=== PATIENT | male | born 1945 | race Caucasian/White ===

== ENCOUNTER 2018-05-25 05:42 | Day surgery (SDC) | payer OTHER ==
[~2018-05-25] VITALS: Ht 180.3 cm; Wt 135.2 kg
--- NOTE | ~2018-05-25 | O ---
[facility] [place] [address] OPERATIVE REPORT Name: MAX PRIEST Room #: 150-6 [facility]..#: [id number] Admission: 05/25/18 Attend Phys: Soren Chin MD Discharge: Date of : 49 Report #: [id number] THIS REPORT FOR: //name// CC: [facility] Physician staff DAVID Chin DATE OF SERVICE: 05/25/2018 PREOPERATIVE DIAGNOSIS: Tumor of left lower lid and cheek. POSTOPERATIVE DIAGNOSIS: Tumor of left lower lid and cheek, basal cell carcinoma. PROCEDURE: Excision of lesion of left lower lid and cheek with frozen section, control of margins and myocutaneous flap repair of defect. SURGEON: Soren Chin MD TELEPHONY ENGINEER: None. ANESTHESIA: MAC. COMPLICATIONS: None. INDICATIONS FOR SURGERY: This pleasant 73-year-old gentleman presents with a nodular ulcerative lesion in his central left lower lid that extends down onto his cheek. Today's plan is to remove that lesion with frozen section, control of tumor extirpation, subsequently reconstruct that defect once margins are clear. Informed consent was obtained to include but not limited to potential risk for loss of vision, bleeding, infection, failure to improve the problem, the potential need for further surgery or treatment. DESCRIPTION OF PROCEDURE: The patient was taken to the operating room where 2% Xylocaine with epinephrine mixed with equal parts 0.75% Marcaine with Wydase was administered transcutaneously to the left lower lid and cheek. The patient was subsequently prepped and draped in the usual sterile fashion. A fine tip skin marking pen was utilized to outline the lesion including 1-2 mm of normal appearing tissue around its entire margin. The incisions were then made with a Blanca scissor and the deeper dissection accomplished through the orbicularis muscle all the way down to the orbital septum. The lesion was then oriented on a drawing for the waiting pathologist as hemostasis was achieved in the field. The pathologist snap froze that specimen and found that the margins were clear [address] [address] OPERATIVE REPORT Name: MAX PRIEST Jovany Room #: 150-6 [facility]..#: [id number] Admission: 05/25/18 Attend Phys: Soren Chin MD Discharge: Date of : 49 Report #: [id number] and the lesion was indeed a basal cell carcinoma. The area was reinspected and a myocutaneous flap outlined laterally. Dissection was accomplished, relaxing incision made and the flap advanced in such a manner to leave an incision closed parallel to the nasojugal fold. That closure was accomplished with interrupted deep Vicryl sutures, followed by a final closure of 6-0 plain gut sutures in the skin. The wounds were then cleaned and dressed with erythromycin ophthalmic ointment. The patient subsequently transported to the recovery area, having tolerated the procedures well with no anesthetic or operative complications being noted. By: [id number] MD jesus manuel Aguilar
[~2018-05-25 05:42] MED LIST: ACCUPRIL10 MG PO; ALDACTONE50 MG PO; ASPIR 8181 MG PO; COREG25 M1 PO; DEMADEX20 MG PO; GLUCOPHAGE1000 MG PO; LIPITOR80 MG PO; NOVOLIN N100 UNIT/1 SUBQ; NOVOLIN R100 UNIT/1 SUBQ; UNICOMPLEX M TA1 TA1 PO; VITAMIN D5000 UNIT PO
[2018-05-25 15:02] VITALS: BP 180/93
--- NOTE | 2018-05-29 13:07 | PATH ---
[facility] [address] [place] [address] PATHOLOGY RPT PROCEDURE Name: MAX PRIEST Jovany Room #: DEP [facility]..#: [id number] Admission: 05/25/18 Date of : 49 Discharge: 05/25/18 Report #: [id number] Path Case #: [id number] [facility] Accession Number: [id number] . 01 Material submitted: . LEFT LOWER LID LESION - FS . 01 Clinical history: . None provided . 02 Diagnosis: Skin, left lower lid lesion, excision: - BASAL CELL CARCINOMA. - Margins of resection free of malignancy. (IUV:pit 05/26/2018) QTP/05/26/2018 . 02 Electronically signed: . Anaya Jefferson MD, Pathologist NPI- [id number] . 01 Gross description: . Specimen is received fresh from the OR labeled with the patient's name, and "left lower leg lesion" consists of an ellipse of skin measuring 1.7 x 1.5 x 0.5 cm. The specimen is oriented as superior, lateral,inferior, and medial by Dr. Chin. These are assigned 12:00, 3:00, 6:00 and 9:00 respectively. The 12:00, 3:00 to 6:00 is inked black, the 6:00 to 9:00 is inked blue and 9:00 to 12:00 is inked green. This specimen is serially sectioned and entirely submitted with frozen section as FSA1, subsequently submitted for permanent sections as A1. . FROZEN SECTION DIAGNOSIS: By Dr. Anaya Jefferson . FSA1. Skin, left lower leg lesion, excision: - BASAL CELL CARCINOMA. - Margins free of invasive carcinoma. . (IUV:at;05/25/2018) . These findings are discussed with Dr. Soren Chin in OR-6 at [facility] and a written report is placed in the patient's chart. . Frozen section performed at [facility], [address] [place] [address] , [place] [address]. [facility] . [address] [address] PATHOLOGY RPT PROCEDURE Name: MAX PRIEST Jovany Room #: DEP [facility] Kalen#: [id number] Admission: 05/25/18 Date of : 49 Discharge: 05/25/18 Report #: [id number] Path Case #: [id number] Pathologist provided ICD-10: C44.1192 . 02 CPT . 882008, [id number] Specimen Comment: A courtesy copy of this report has been sent to Specimen Comment: [phone], . Specimen Comment: Report sent to / DR BELL Specimen Comment: A duplicate report has been generated due to demographic updates. Performed at: [address], [place], [place] [id number] MD Bill Whitley MD Phone: [phone] Performed at: [address] [facility] [id number] MD Anyaa Jefferson MD Phone: [phone]
== END 2018-05-25 12:45 | disposition home or self-care (01) ==
LOC: OR 05:42 → TBA 05:43 → OR 12:45
DX: C44.1192 Basal cell carcinoma of skin of left lower eyelid, including canthus (principal); C44.319 Basal cell carcinoma of skin of other parts of face; I12.9 Hypertensive chronic kidney disease with stage 1 through stage 4 chronic kidney disease, or unspecified chronic kidney disease; E11.22 Type 2 diabetes mellitus with diabetic chronic kidney disease; N18.9 Chronic kidney disease, unspecified; E78.00 Pure hypercholesterolemia, unspecified; Z79.4 Long term (current) use of insulin; Z95.1 Presence of aortocoronary bypass graft; Z85.828 Personal history of other malignant neoplasm of skin; Z87.891 Personal history of nicotine dependence; Z98.890 Other specified postprocedural states; Z95.810 Presence of automatic (implantable) cardiac defibrillator; Z79.82 Long term (current) use of aspirin; Z79.899 Other long term (current) drug therapy
CPT/HCPCS: 50010; 50101; 50386; 50398; 51636; 56528; 56531; 62110; 62850; 70005